=== PATIENT | female | born 1955 | race Caucasian/White ===

== ENCOUNTER 2018-03-07 11:39 | Outpatient (REF) | payer BC, SELFPAY ==
[2018-03-07 22:51] LABS: Cholesterol 117 mg/dL (50-200); HDL Cholesterol 59 mg/dL (40-60); LDL CHOLESTEROL 52 mg/dL (<100); Triglyceride 52 mg/dL (30-150)
== END 2018-03-07 11:59 ==
LOC: NCHCN 11:39
PROVIDERS: PCP Nurse Practitioner Family; Visit Provider Nurse Practitioner Family
DX: E78.5 Hyperlipidemia, unspecified (principal); I65.23 Occlusion and stenosis of bilateral carotid arteries
CPT/HCPCS: 80061; 83721

== ENCOUNTER 2018-05-30 12:49 | Outpatient (CLI) | payer BC, SELFPAY ==
--- NOTE | 2018-05-30 14:15 | W.PREOPHP ---
Documented by User: Teresa Kendell 06/01/18 08:17 Assessment and Plan (1) Traumatic arthritis of left knee: Current visit: Yes Status: Acute Plan: As per Dr. Coronel patient does not require bone length x-ray since total knee replacement is being done using OrthoAlign. Discussed surgery including surgical technique, pertinent anatomy, recovery process, benefits and risks including but not limited to risk of infection, blood clot, damage to soft tissue/nerve/blood vessels with patient in detail. Patient gave verbal understanding of risks and elects to proceed with scheduling surgery. Patient had opportunity to have questions answered to her satisfaction. Patient was provided booklet on guide to total knee replacements. Patient will contact office if issues arise, she will be scheduled for left total knee replacement with Dr. Coronel on June 05, 2018. Ms. Hanna is a 62-year-old female who presents to clinic for preoperative visit for scheduled left total knee replacement with Dr. Coronel on June 05, 2018. 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 Patient reports she did not lose consciousness but is unable to recall exactly how she suffered injury to her left leg. With help of her patient was able to escape from the bull, put weight on her left leg and walk into her house. She then presented for complaints of left knee pain several hours after injury. Once treated patient was diagnosed with left tibial plateau fracture which was treated with ORIF with lateral side plate. Following injury patient was diagnosed with posttraumatic arthritis of the left knee which has been managed by corticosteroid injections and Synvisc injections. Patient had originally been seen and treated at [facility] but sought care at [facility] orthopedics on 08/07/17. Following visit with orthopedic clinic patient returned to [facility] where she had left knee arthroscopy which diagnosed lateral meniscal tear and tricompartmental osteoarthritis. At time of left knee arthroscopy patient also had left proximal tibia hardware removal on 11/30/17. Patient was planning to have knee replacement done by [facility], however was unable to arrange to have knee replacement done within patient's desired timeframe. Describes continuing to have pain on the lateral aspect of her knee and occasionally the medial joint line. She reports that the knee feels weak and occasionally unstable especially walking on uneven ground and when going up stairs. Denies any actual giving out of the knee. She also reports feelings of fullness of the knee. She has noticed walking on uneven ground, going downstairs and skiing aggravates knee pain. Patient denies any swelling, numbness or tingling. Patient has tried corticosteroid and Synvisc injections which had previously provided relief. However, following the Synvisc and corticosteroid injection she received at [facility] orthopedic clinic on 03/23/18 she states she only had 48 hours of pain relief. Patient has continued to take Aleve as needed which provides pain relief. Patient has tried conservative therapies but continues to experience pain and elects to proceed with left total knee replacement. Pertinent Surgical Information Patient has history of elective RCA revascularization that required 2 cardiac stents placement approximately 3.5 years ago at [facility]. Patient reports prior to having cardiac stents placed she had exertional chest pain after completing farm and lawn activities for several months. However, following cardiac stent placement patient denies any episodes of chest pain. She does report weeklong occasion of feeling like she had an irregular heartbeat and palpitations in June 2017. She reports wearing a Holter monitor for 72 hours which did not show abnormal heart activity as per patient. EKG from 06/22/17 showed normal sinus rhythm with calculated rate of 69 bpm. Echocardiogram done by [facility] cardiology on 11/23/17 concluded normal left ventricular wall thickness, left ventricular ejection fraction is normal. Ejection fraction equals 65-70%. Left atrium is mildly dilated. There is mild aortic valve thickening. Denies past medical history of: Hypertension, stroke, asthma, COPD, sleep apnea, renal issues, liver issues, hepatitis, gastrointestinal issues, ulcers, bleeding disorders, seizures, migraines, anxiety, depression, diabetes, autoimmune disorders, thyroid issues Denies prior complications from surgery or anesthesia. Review of Systems Constitutional Denies fever(s), Denies frequent falls and Denies headache(s) Eyes Denies change in vision ENT Denies dental pain, Denies headache(s), Denies epistaxis, Denies nasal congestion, Denies nasal discharge and Denies sore throat Cardiovascular Denies chest pain, Denies chest pain at rest, Denies chest pain with activity, Denies rapid heart rate, Denies edema, Reports irregular heart rhythm (Reports experienced irregular heartbeat last year; denies any recent irregular heart rhythm after cardiac workup was completed), Reports palpitations (Reports experiecing palpitations when she had irregular heartbeat in June 2017; denies any recent episodes of palpitations since she had cardiac work-up), Denies dyspnea, Denies dyspnea on exertion, Denies orthopnea, Denies paroxysmal nocturnal dyspnea, Denies slow heart rate and Reports other (Reports history of innocent murmur) Respiratory Denies dyspnea, Denies dyspnea on exertion and Denies wheezing Gastrointestinal Denies abdominal pain, Denies melena, Denies hematochezia, Denies constipation, Denies diarrhea, Denies nausea and Denies vomiting Genitourinary Denies hematuria, Denies dysuria and Denies urinary urgency Musculoskeletal Reports as per HPI, Denies numbness and Denies tingling Neurologic Denies frequent falls, Denies headache(s), Denies numbness and Denies tingling Psychiatric Denies anxiety and Denies depression Endocrine Reports palpitations (Reports experiecing palpitations when she had irregular heartbeat in June 2017; denies any recent episodes of palpitations since she had cardiac work-up) Allergic/Immunologic Denies wheezing PFSH CAD (coronary artery disease) (Chronic) Innocent heart murmur (Acute) Hyperlipidemia (Chronic) Traumatic arthritis of left knee (Acute 08/07/17) Family History Mother Hypertension Father Hypertension Hyperlipidemia AAA (abdominal aortic aneurysm) Brother Kidney stones Status post placement of stent in right coronary artery (Acute) History of open reduction and internal fixation (ORIF) procedure (Acute) Status post abdominal hysterectomy (Acute) Status post hardware removal (Acute) History of open reduction and internal fixation (ORIF) procedure (Acute) Status post arthroscopy of left knee (Acute) Social History marital status: current occupational status: retired Smoking/Tobacco Use Status: Former Tobacco Use pack-years: 40 how long ago did patient quit smoking: quit 4 years ago when diagnosed with heart issues alcohol intake: current alcohol intake frequency: 0-2 drinks per day Alcohol type: wine substance use type: does not use Meds Home Medications Medication Instructions Recorded Confirmed Type aspirin 81 mg chewable tablet 81 mg PO DAILY 03/23/18 05/30/18 History atorvastatin 40 mg tablet 40 mg PO DAILY 03/23/18 05/30/18 History evolocumab 140 mg/mL subcutaneous 140 mg SC Q2W 03/23/18 05/30/18 History pen injector Allergies Allergy/AdvReac Type Severity Reaction Status Date / Time midazolam [From Versed] AdvReac Intermediate Uncontrollable Verified 05/31/18 16:22 crying Exam Const General: cooperative and no acute distress [facility] Head: normal to inspection, normocephalic and atraumatic Ears: external ears normal General nose exam: external nose normal and no nasal discharge Face and sinus: face symmetric Mouth: oral mucosae normal, lip normal, tongue normal and moist mucous membranes Teeth and gingiva: dentition normal Throat: posterior oropharynx normal Eyes General: appearance normal, both eyes and all related structures Pupils: PERRL EOM: EOM intact bilaterally Neck Neck: trachea midline Carotids: normal carotid upstroke Lymphatic: no lymphadenopathy noted Resp Effort & Inspection: normal respiratory effort and able to speak in complete sentences Auscultation: clear to auscultation bilaterally, no rales, no rhonchi and no wheezes Cardio Heart Sounds: S1 normal, S2 normal, no gallops, murmur and no rubs Pulses: radial pulses present bilaterally GI Palpation: soft, no hepatosplenomegaly and nontender Auscultation: normal bowel sounds Skin General skin exam: no rashes or lesions noted Extrem Other: Left knee examination: Skin is intact with well-healed scar noted consistent with surgical history. No signs of effusion are noted. Skin is without rashes, lesions, erythema or edema. Mild valgus deformity is noted on visual inspection. No tenderness palpation along joint line or patella. Active range of motion yields full extension and flexion of 120 degrees. Slight laxity is noted with stress to the knee but stable endpoints, increased laxity is noted with varus compared to valgus stress. Muscle strength was 5 out of 5 and elicited minor discomfort. Results Labs : 05/30/18 13:52 05/30/18 13:52
[2018-05-30 14:37] LABS: HCT 44.8 % (36.0-46.0); HGB 14.8 g/dL (12.0-15.5); Mean Corpuscular Hemoglobin 31.2 pg (27.0-33.0); Mean Corpuscular Volume 94.3 fL (80-95); Mean Platelet Volume 11.1 fL (8.0-11.0); Platelet Count 207 x1000/uL (130-400); RBC 4.75 m/cumm (4.00-5.20); RBC Distribution Width 12.9 % (11.7-14.6); White Blood Cell Count 7.03 k/cumm (4.4-10.8)
[2018-05-30 15:22] LABS: Anion Gap 9.5 mmol/L (3-11); BUN 11 mg/dL (7-18); CO2 30.5 mmol/L (21.0-32.0); CREATININE 0.82 mg/dL (0.55-1.02); Calcium 9.6 mg/dL (8.5-10.1); Chloride 103 mmol/L (98-107); Glucose 80 mg/dL (70-100); Potassium 4.1 mmol/L (3.5-5.1); Sodium 143 mmol/L (136-145)
--- NOTE | 2018-05-31 16:22 | HPE_ITS ---
Documented by User: Teresa Kendell 06/01/18 08:17 Assessment and Plan (1) Traumatic arthritis of left knee: Current visit: Yes Status: Acute Plan: As per Dr. Coronel patient does not require bone length x-ray since total knee replacement is being done using OrthoAlign. Discussed surgery including surgical technique, pertinent anatomy, recovery process, benefits and risks including but not limited to risk of infection, blood clot, damage to soft tissue/nerve/blood vessels with patient in detail. Patient gave verbal understanding of risks and elects to proceed with scheduling surgery. Patient had opportunity to have questions answered to her satisfaction. Patient was provided booklet on guide to total knee replacements. Patient will contact office if issues arise, she will be scheduled for left total knee replacement with Dr. Coronel on June 05, 2018. Ms. Hanna is a 62-year-old female who presents to clinic for preoperative visit for scheduled left total knee replacement with Dr. Coronel on June. 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 Patient reports she did not lose consciousness but is unable to recall exactly how she suffered injury to her left leg. With help of her patient was able to escape from the bull, put weight on her left leg and walk into her house. She then presented for complaints of left knee pain several hours after injury. Once treated patient was diagnosed with left tibial plateau fracture which was treated with ORIF with lateral side plate. Following injury patient was diagnosed with posttraumatic arthritis of the left knee which has been managed by corticosteroid injections and Synvisc injections. Patient had originally been seen and treated at [facility] but sought care at [facility] orthopedics on 08/07/17. Following visit with orthopedic clinic patient returned to [facility] where she had left knee arthroscopy which diagnosed lateral meniscal tear and tricompartmental osteoarthritis. At time of left knee arthroscopy patient also had left proximal tibia hardware removal on 11/30/17. Patient was planning to have knee replacement done by [facility], however was unable to arrange to have knee replacement done within patient's desired timeframe. Describes continuing to have pain on the lateral aspect of her knee and occasionally the medial joint line. She reports that the knee feels weak and occasionally unstable especially walking on uneven ground and when going up stairs. Denies any actual giving out of the knee. She also reports feelings of fullness of the knee. She has noticed walking on uneven ground, going downstairs and skiing aggravates knee pain. Patient denies any swelling, numbness or tingling. Patient has tried corticosteroid and Synvisc injections which had previously provided relief. However, following the Synvisc and corticosteroid injection she received at [facility] orthopedic clinic on 03/23 she states she only had 48 hours of pain relief. Patient has continued to take Aleve as needed which provides pain relief. Patient has tried conservative therapies but continues to experience pain and elects to proceed with left total knee replacement. Pertinent Surgical Information Patient has history of elective RCA revascularization that required 2 cardiac stents placement approximately 3.5 years ago at [facility]. Patient reports prior to having cardiac stents placed she had exertional chest pain after completing farm and lawn activities for several months. However, following cardiac stent placement patient denies any episodes of chest pain. She does report weeklong occasion of feeling like she had an irregular heartbeat and palpitations in June 2017. She reports wearing a Holter monitor for 72 hours which did not show abnormal heart activity as per patient. EKG from 06/22/17 showed normal sinus rhythm with calculated rate of 69 bpm. Echocardiogram done by [facility] cardiology on 11/23/17 concluded normal left ventricular wall thickness, left ventricular ejection fraction is normal. Ejection fraction equals 65-70%. Left atrium is mildly dilated. There is mild aortic valve thickening. Denies past medical history of: Hypertension, stroke, asthma, COPD, sleep apnea , renal issues, liver issues, hepatitis, gastrointestinal issues, ulcers, bleeding disorders, seizures, migraines, anxiety, depression, diabetes, autoimmune disorders, thyroid issues Denies prior complications from surgery or anesthesia. Review of Systems Constitutional Denies fever(s), Denies frequent falls and Denies headache(s) Eyes Denies change in vision ENT Denies dental pain, Denies headache(s), Denies epistaxis, Denies nasal congestion, Denies nasal discharge and Denies sore throat Cardiovascular Denies chest pain, Denies chest pain at rest, Denies chest pain with activity, Denies rapid heart rate, Denies edema, Reports irregular heart rhythm (Reports experienced irregular heartbeat last year; denies any recent irregular heart rhythm after cardiac workup was completed), Reports palpitations (Reports experiecing palpitations when she had irregular heartbeat in June 2017; denies any recent episodes of palpitations since she had cardiac work-up), Denies dyspnea, Denies dyspnea on exertion, Denies orthopnea, Denies paroxysmal nocturnal dyspnea, Denies slow heart rate and Reports other (Reports history of innocent murmur) Respiratory Denies dyspnea, Denies dyspnea on exertion and Denies wheezing Gastrointestinal Denies abdominal pain, Denies melena, Denies hematochezia, Denies constipation, Denies diarrhea, Denies nausea and Denies vomiting Genitourinary Denies hematuria, Denies dysuria and Denies urinary urgency Musculoskeletal Reports as per HPI, Denies numbness and Denies tingling Neurologic Denies frequent falls, Denies headache(s), Denies numbness and Denies tingling Psychiatric Denies anxiety and Denies depression Endocrine Reports palpitations (Reports experiecing palpitations when she had irregular heartbeat in June 2017; denies any recent episodes of palpitations since she had cardiac work-up) Allergic/Immunologic Denies wheezing PFSH CAD (coronary artery disease) (Chronic) Innocent heart murmur (Acute) Hyperlipidemia (Chronic) Traumatic arthritis of left knee (Acute 08/07/17) Family History Mother Hypertension Father Hypertension Hyperlipidemia AAA (abdominal aortic aneurysm) Brother Kidney stones Status post placement of stent in right coronary artery (Acute) History of open reduction and internal fixation (ORIF) procedure (Acute) Status post abdominal hysterectomy (Acute) Status post hardware removal (Acute) History of open reduction and internal fixation (ORIF) procedure (Acute) Status post arthroscopy of left knee (Acute) Social History marital status: current occupational status: retired Smoking/Tobacco Use Status: Former Tobacco Use pack-years: 40 how long ago did patient quit smoking: quit 4 years ago when diagnosed with heart issues alcohol intake: current alcohol intake frequency: 0-2 drinks per day Alcohol type: wine substance use type: does not use Meds Home Medications Medication Instructions Recorded Confirmed Type aspirin 81 mg chewable tablet 81 mg PO DAILY 03/23/18 05/30/18 History atorvastatin 40 mg tablet 40 mg PO DAILY 03/23/18 05/30/18 History evolocumab 140 mg/mL subcutaneous 140 mg SC Q2W 03/23/18 05/30/18 History pen injector Allergies Allergy/AdvReac Type Severity Reaction Status Date / Time midazolam [From Versed] AdvReac Intermediate Uncontrollable Verified 05/31/18 16 :22 crying Exam Const General: cooperative and no acute distress [facility] Head: normal to inspection, normocephalic and atraumatic Ears: external ears normal General nose exam: external nose normal and no nasal discharge Face and sinus: face symmetric Mouth: oral mucosae normal, lip normal, tongue normal and moist mucous membranes Teeth and gingiva: dentition normal Throat: posterior oropharynx normal Eyes General: appearance normal, both eyes and all related structures Pupils: PERRL EOM: EOM intact bilaterally Neck Neck: trachea midline Carotids: normal carotid upstroke Lymphatic: no lymphadenopathy noted Resp Effort & Inspection: normal respiratory effort and able to speak in complete sentences Auscultation: clear to auscultation bilaterally, no rales, no rhonchi and no wheezes Cardio Heart Sounds: S1 normal, S2 normal, no gallops, murmur and no rubs Pulses: radial pulses present bilaterally GI Palpation: soft, no hepatosplenomegaly and nontender Auscultation: normal bowel sounds Skin General skin exam: no rashes or lesions noted Extrem Other: Left knee examination: Skin is intact with well-healed scar noted consistent with surgical history. No signs of effusion are noted. Skin is without rashes, lesions, erythema or edema. Mild valgus deformity is noted on visual inspection. No tenderness palpation along joint line or patella. Active range of motion yields full extension and flexion of 120 degrees. Slight laxity is noted with stress to the knee but stable endpoints, increased laxity is noted with varus compared to valgus stress. Muscle strength was 5 out of 5 and elicited minor discomfort. Results Labs : 05/30/18 13:52 05/30/18 13:52
== END 2018-05-30 13:09 ==
PROVIDERS: PCP Nurse Practitioner Family; Visit Provider Student in an Organized Health Care Education/Training Program
DX: M25.562 Pain in left knee (principal); M17.12 Unilateral primary osteoarthritis, left knee; Z01.818 Encounter for other preprocedural examination
CPT/HCPCS: 36415; 80048; 85027; NC

== ENCOUNTER 2018-06-05 05:58 | Inpatient (IN) | payer BC, SELFPAY ==
[2018-05-30 13:08] VITALS: BP 154/90; PULSE 63; RESP 17; TEMP 36.7; O2SAT 97
[2018-06-05] VITALS (8 sets, daily range): BP systolic 131–174; BP diastolic 76–91; PULSE 62–766; RESP 11–18; TEMP 36–36.5; O2SAT 94–99
[2018-06-05] MEDS: Celecoxib 200 MG CAP 400 MG PO (06:27)
[2018-06-05] MEDS: Gabapentin 300 MG CAP PO (06:28)
[2018-06-05] MEDS: Acetaminophen 500 MG TAB 1000 MG PO ×2 (06:28→12:08)
[2018-06-05] MEDS: oxyCODONE-CR 10 MG TABCR PO (06:29)
[2018-06-05] MEDS: Lactated Ringers 1,000 ML 80 ML IV ×2 (06:31→09:47)
[2018-06-05] MEDS: Bupivacaine 0.25% Pres-Free 30 ML VIAL (08:55)
[2018-06-05] MEDS: Normal Saline 50 ML (08:55)
[2018-06-05] MEDS: Ketorolac 30 MG/ML VIAL (08:55)
[2018-06-05] MEDS: Bupivacaine LIPOSOME/PF 133 MG/10 ML VIAL IJ (08:55)
--- NOTE | 2018-06-05 11:27 | NUR.NOTE ---
Nursing Note: Pt arrived on floor at 1057 from PACU, vitals stable, LR running. Propofol left in pigtail, pigtail on IV to be changed. Pt has cryo cuff and KEHINDE on left leg.
--- NOTE | 2018-06-05 13:45 | PT.INIE ---
Date of service: 06/05/18 Time of Service: 13:45 PT Notes Inpatient Physical Therapy Evaluation Date: 06/05/2018 Referring Doctor: Nasim Coronel PT Orders: PT CONSULT: S/P L TKA Precautions: WBAT LLE Patient Profile/Admitting Diagnosis: Patient is a 62-year-old female as/P left total knee arthroplasty by Dr. Coronel 06/05/2018 PMHX: Coronary artery disease status post stent placement, heart murmur, traumatic arthritis left knee, left tibial plateau fracture with hardware removal, hyperlipidemia, abdominal hysterectomy Social History/Home Situation: Lives with and her house 3 steps with single railing to enter, baseline mobility independent gait without assistive device and independent with ADLs. Patient is a retired nurse. Equipment Owned/DME: [employer] Subjective: Patient lying in bed alert and agreeable to PT consult, states she is eager to go home this afternoon. Objective: General Observation: IV left upper extremity, Zarate catheter, Jose A wrap left lower extremity, CryoCuff left knee Mental Status: A and O x3 Pain: No complaints of pain Bed Mobility/Transfers: Supine to sit: Independent Sit to stand: Independent Stand to sit: Independent Sit to supine: Independent Gait: Supervision gait with FWW is 250 feet, WBAT LLE, step through gait pattern with instruction for sequencing Stairs: Instructed in up and down 5 steps with single railing step to step sequence, WBAT LLE, patient independent with stair training. Therex: Patient has issued pre-op TKA packet with home exercise program Balance: Static Sitting: Normal Dynamic Sitting: Normal Static Standing: Good Dynamic Standing: Fair Special Tests: Mobility Limitations Standardized Measure [facility] AM-PAC 6 clicks Basic Mobility Inpatient Short Form: Raw Score: 21 standardized Score 50.25 CMS Score: 28.97% [facility] Modifier: CJ Informed Consent/Education: Patient instructed in purpose of PT consult and plan of care. Assessment: Patient is a 62 year old female referred to physical therapy services with the diagnosis of S/P left total knee arthroplasty by Dr. Coronel 06/05/2018. Patient presents with the following impairment level findings: Weakness left quadricep, decreased static and dynamic standing balance requiring FWW for postop mobility to prevent falls. Patient was able to perform independent transfers, independent stair training with use of railing and supervision gait with FWW without assistance. Patient is at functional level to return to home setting when medically cleared MD aware. Impairments are contributing to the following functional limitations: AMPAC score CMS Score: 28.97% Patient is assessed as a Low 37115 complexity based on the following: History: See above Examination: See above Presentation: Stable Decision Making:AMPAC score CMS Score: 28.97% Goals: Not applicable Plan of Care/Treatment Plan: PT eval only DISCHARGE RECOMMENDATIONS: Home with , has FWW TREATMENT CODE/TIME: 30 minutes IE 1 1340 G Codes in the area mobility of walking and moving around: current status [id number] CK; projected status GP [id number]. Discharge status (if discharging) GP [id number] CK based on AMPAC scores. Sheela Bee PT Disclaimer: This note was created using jslyhl voice recognition software. It was reviewed for major content. However, there may be multiple small discrepancies and errors due to the voice recognition aspects of the software.
--- NOTE | 2018-06-05 13:55 | IN_ITS ---
Date of service: 06/05/18 Time of Service: 13:45 PT Notes Inpatient Physical Therapy Evaluation Date: 06/05/2018 Referring Doctor: Nasim Coronel PT Orders: PT CONSULT: S/P L TKA Precautions: WBAT LLE Patient Profile/Admitting Diagnosis: Patient is a 62-year-old female as/P left total knee arthroplasty by Dr. Coronel 06/05/2018 PMHX: Coronary artery disease status post stent placement, heart murmur, traumatic arthritis left knee, left tibial plateau fracture with hardware removal, hyperlipidemia, abdominal hysterectomy Social History/Home Situation: Lives with and her house 3 steps with single railing to enter, baseline mobility independent gait without assistive device and independent with ADLs. Patient is a retired nurse. Equipment Owned/DME: FWW Subjective: Patient lying in bed alert and agreeable to PT consult, states she is eager to go home this afternoon. Objective: General Observation: IV left upper extremity, Zarate catheter, Jose A wrap left lower extremity, CryoCuff left knee Mental Status: A and O x3 Pain: No complaints of pain Bed Mobility/Transfers: Supine to sit: Independent Sit to stand: Independent Stand to sit: Independent Sit to supine: Independent Gait: Supervision gait with FWW is 250 feet, WBAT LLE, step through gait pattern with instruction for sequencing Stairs: Instructed in up and down 5 steps with single railing step to step sequence, WBAT LLE, patient independent with stair training. Therex: Patient has issued pre-op TKA packet with home exercise program Balance: Static Sitting: Normal Dynamic Sitting: Normal Static Standing: Good Dynamic Standing: Fair Special Tests: Mobility Limitations Standardized Measure [facility] AM-PAC 6 clicks Basic Mobility Inpatient Short Form: Raw Score: 21 standardized Score 50.25 CMS Score: 28.97% [facility] Modifier: CJ Informed Consent/Education: Patient instructed in purpose of PT consult and plan of care. Assessment: Patient is a 62 year old female referred to physical therapy services with the diagnosis of S/P left total knee arthroplasty by Dr. Coronel 06/05/2018. Patient presents with the following impairment level findings: Weakness left quadricep, decreased static and dynamic standing balance requiring FWW for postop mobility to prevent falls. Patient was able to perform independent transfers, independent stair training with use of railing and supervision gait with FWW without assistance. Patient is at functional level to return to home setting when medically cleared MD aware. Impairments are contributing to the following functional limitations: AMPAC score CMS Score: 28.97% Patient is assessed as a Low 90694 complexity based on the following: History: See above Examination: See above Presentation: Stable Decision Making:AMPAC score CMS Score: 28.97% Goals: Not applicable Plan of Care/Treatment Plan: PT eval only DISCHARGE RECOMMENDATIONS: Home with , has FWW TREATMENT CODE/TIME: 30 minutes IE 1 1340 G Codes in the area mobility of walking and moving around: current status [id number] CK; projected status GP [id number]. Discharge status (if discharging) GP [id number] CK based on AMPAC scores. Sheela Bee PT Disclaimer: This note was created using [employer] voice recognition software. It was reviewed for major content. However, there may be multiple small discrepancies and errors due to the voice recognition aspects of the software.
--- NOTE | 2018-06-05 14:07 | PDOC.CMPRO ---
- If Service Date Differs Date of service: 06/05/18 Time of Service: 14:07 Care Management Progress Note CM met with Amna at the bedside she had a total left knee done today. She will be discharged home today with no services. She has her own FWW here with her she will transport home with her spouse via private car. She has a plan to manage pain CM reviewed follow up plan. Amna denies any additional needs at this time.
--- NOTE | 2018-06-05 14:36 | W.PM.DS.N ---
Date of service: 06/05/18 Time of Service: 14:37 DS: Diagnosis Discharge Diagnosis (1) Traumatic arthritis of left knee: Status: Acute Asessment and Plan: s/p Left TKA 06/05/18 Discharge Plan Disposition Patient Disposition: HOME Condition: Improving Discharge Details Reason For Visit: (L) KNEE DJD Admit Date/Time: 06/05/18 05:58 Admit Provider: Nasim Coronel Attending Provider: Nasim Coronel Primary Care Provider: RASHIDA ALEMAN Hospital Course Hospital Course: Patient was admitted to the medical/surgical floor following the procedure. It was tolerated well without any notable medical, surgical, or anesthetic complications. Mobilization began postoperatively. The barahona catheter was removed and voiding spontaneously. Vitals were stable. Physical therapy worked with the patient and was cleared for discharge home. No acute medical issues. Home Meds and New Rx's Prescriptions: New celecoxib 200 mg capsule 200 mg PO BID PRN (Reason: pain) Qty: 60 RF: 1 hydrocodone-acetaminophen 5-325 mg tablet 1 tab PO Q4H PRN (Reason: pain) Qty: 6 RF: 0 pantoprazole 40 mg tablet,delayed release (DR/EC) 40 mg PO DAILY Qty: 30 RF: 0 acetaminophen 500 mg capsule 1,000 mg PO Q8H PRN (Reason: pain) Qty: 90 RF: 0 Continue atorvastatin 40 mg tablet 40 mg PO DAILY RF: 0 evolocumab [Repatha SureClick] 140 mg/mL pen injector 140 mg SC Q2W RF: 0 Changed aspirin 81 mg tablet,chewable 81 mg PO BID Qty: 0 RF: 0 Discharge Instructions Activity:: Activity as Tolerated Equipment/Supplies:: Walker Diet:: As Tolerated Discharge Orders Discharge Orders: Discharge Order (Routine); Ordered 06/05/18 Ordered By: Nasim Coronel DS: Data Vitals/I&O Vitals and I&O: Vital Signs Temperature 36.4 C L 06/05/18 11:10 Temperature Source Tympanic 06/05/18 11:10 Pulse 65 06/05/18 11:10 Pulse Rhythm Regular 06/05/18 11:00 Respiratory Rate 18 06/05/18 11:10 Respiratory Effort Non-Labored 06/05/18 11:00 Respiratory Depth Normal 06/05/18 11:00 Respiratory Pattern Normal 06/05/18 11:00 Blood Pressure 174/83 H 06/05/18 11:10 Pulse Oximetry 97 06/05/18 11:10 Respiratory End-tidal CO2 36 06/05/18 10:45 Oxygen Delivery Method Room Air 06/05/18 11:10 Oxygen Flow Rate 0 06/05/18 11:10 Pain Level 0 06/05/18 12:08 Comment 06/05/18 11:10 Intake & Output 06/04/18 06/05/18 06/05/18 23:59 11:59 23:59 Intake Total 1375 / 1375 480 / 480 Output Total 400 / 400 1200 / 1200 Balance 975 / 975 -720 / -720 Weight 76.8 kg Intake: IV 1270 / 1270 Oral 105 / 105 480 / 480 Output: Urine 250 / 250 1200 / 1200 Estimated Blood Loss 150 / 150 Other: Urine Color Yellow Pale Yellow Urine Appearance Clear Clear Emesis Description None PFSH CAD (coronary artery disease) (Chronic) Innocent heart murmur (Acute) Hyperlipidemia (Chronic) Family History Mother Hypertension Father Hypertension Hyperlipidemia AAA (abdominal aortic aneurysm) Brother Kidney stones Status post placement of stent in right coronary artery (Acute) History of open reduction and internal fixation (ORIF) procedure (Acute) Status post abdominal hysterectomy (Acute) Status post hardware removal (Acute) History of open reduction and internal fixation (ORIF) procedure (Acute) Status post arthroscopy of left knee (Acute) Family History Mother Hypertension Father Hypertension Hyperlipidemia AAA (abdominal aortic aneurysm) Brother Kidney stones Medical History CAD (coronary artery disease) (Chronic) Innocent heart murmur (Acute) Hyperlipidemia (Chronic) Social History current occupational status: retired Smoking/Tobacco Use Status: Former Tobacco Use pack-years: 40 how long ago did patient quit smoking: quit 4 years ago when diagnosed with heart issues alcohol intake: current alcohol intake frequency: 0-2 drinks per day Alcohol type: wine substance use type: does not use Surgical History Status post placement of stent in right coronary artery (Acute) History of open reduction and internal fixation (ORIF) procedure (Acute) Status post abdominal hysterectomy (Acute) Status post hardware removal (Acute) History of open reduction and internal fixation (ORIF) procedure (Acute) Status post arthroscopy of left knee (Acute) Social History current occupational status: retired Smoking/Tobacco Use Status: Former Tobacco Use pack-years: 40 how long ago did patient quit smoking: quit 4 years ago when diagnosed with heart issues alcohol intake: current alcohol intake frequency: 0-2 drinks per day Alcohol type: wine substance use type: does not use
--- NOTE | 2018-06-05 17:03 | ROE_ITS ---
Date of service: 06/05/18 Time of Service: 10:54 Operative Note DATE OF PROCEDURE: 06/05/18 PRE-OP DIAGNOSIS: Left Posttraumatic Knee Arthritis POST-OP DIAGNOSIS: same PROCEDURE: Left Total Knee Arthroplasty with Intraoperative Navigation SURGEON: Nasim Coronel SOFTWARE SECURITY CONSULTANT: Teresa Rdz ANESTHESIA: regional and spinal ESTIMATED BLOOD LOSS: 150 PATHOLOGY: none sent TOURNIQUET TIME: 37 COMPLICATIONS: None Patient was transported to: PACU Patient's condition: stable Implants: 1. Depuy Attune Posterior Stabilized Femoral Component, Size 6 narrow 2. Depuy Attune Fixed Platform Tibial Component, Size 4 3. Depuy Attune 6 x 8 mm fixed, Stabilized Poly 4. Depuy Attune Patellar Component, Size 35 mm Indications: I have seen Amna in clinic for symptoms of posttraumatic knee arthritis, confirmed with radiographic findings and previous arthroscopic findings. She has exhausted nonoperative methods and was having significant limitations in daily function and desired better function and less pain. I discussed the technical details of a knee replacement. I explained the risks of the procedure to include, but not limited to, bleeding, infection, pain, stiffness, fracture, damage to nerves and vessels, damage to muscles and tendons , loosening, need for repeat procedure, blood clot and cardiopulmonary demise. Despite these risks, Amna elected to proceed. Findings: There was significant signs of arthritis throughout the knee, primarily of the lateral tibial plateau with complete loss of cartilage. There is also some wear, centrally, over the medial compartment. Procedure Description: Amna was greeted in the preoperative holding area where the correct side was identified and marked. The consent was reviewed with the patient and signed. The history and physical was updated. All questions were answered. Preoperative mediacations were administered: Acetaminophen 1000mg, Celebrex 400mg, Gabapentin 300mg, and Oxycontin 10mg. An adductor canal block was then administered by the anesthesia team in the PACU. Amna was taken back to the operating room. A spinal anesthestic was then administered. The patient was placed into the supine position on the operating room table. A nonsterile tourniquet was placed high onto the leg but only used for cementing. Posts were placed for positioning during the procedure. All bony prominences were well padded. Prophylactic antibiotics in the form of cefazolin were administered. 1g of Tranxemic Acid was given intravenously within 30 minutes of incision. The left leg was then prepped with Chloraprep and draped in a standard fashion with impervious stockinette and extremity drape with Iodine impregnated skin protection. A timeout to confirm correct identity, side and site, procedure, allergies, anesthesia, and medical concerns was performed. Due to the previous surgery for her lateral tibial plateau, I did use the previous lateral incision. I incorporated the old lateral incision into a sweeping lateral curvilinear incision ending over the anterior femur. I made sure to go all the way down to the IT band, vastus lateralis, and patellar tendon raising full-thickness skin flaps incorporating all of the subtendinous fat subtenons tissue and the deep fascia. I did not encounter any perforators hopefully protecting the skin flaps integrity. Once the extensor mechanism was fully exposed, a medial parapatellar arthrotomy was performed in a flexed position. All bleeding from the arthrotomy and the geniculate arteries was coagulated. A medial subperiosteal peel was performed with electrocautery to the midcoronal plane. The fat pad was removed while keeping the patellar tendon protected. The anterior distal femur synovium was removed for later visualization. The ACL and PCL were resected and the anterior horn of the lateral meniscus was transected. The knee was then flexed with the patella everted. There was some hypoplasia of the lateral femoral condyle and any remnant cartilage of the medial femoral condyle was removed for appropriate thickness. A single starting pin was then placed 1cm anterior to the PCL insertion and the notch in the direction of the femoral head. The OrthoAlign device was applied over the pin. It was oriented to be in line with the epicondylar axis and the trochlear groove. It was then pinned into place. The navigation computer was then turned on and calibrated. The distal femur cut was set at 0 degrees varus/ valgus and 2.5 degrees flexion. The distal femur cutting guide then was positioned for a 9mm cut. The distal femur was cut with an oscillating saw while protecting the soft tissues. The tibia was then addressed. The OrthoAlign device was placed over the tibial tubercle and medial tibia and secured into position. Once again, OrthoAlign was calibrated and then set for a 0 degree varus/valgus cut and 3 degrees of posterior slope. With this locked into position, the cut thickness stylus was used to assess cut thickness. The cut was quite even given her lateral wear. I set it for 6 mm off both medial and lateral side. This was then held in position and pinned into place with 2 additional pins and a cross pin for stability. The medial and lateral collateral ligaments were protected and the cut was performed. With this completed, it was assessed and noted to be of appropriate dimensions. The guide and OrthoAlign was removed. A spacer block was inserted and the knee was brought into extension. The 8 mm spacer block provided full extension, without hyperextension and with stability of both the medial and lateral collateral ligaments was assessed. The pins from the femur and the tibia were then removed. The distal femur was then sized. The anterior stylus was placed onto the lateral ridge of the anterior femur. This indicated a size 6 femur. The external rotation of the guide was adjusted to 5 degrees to match the epicondylar axis, perpendicular to Tiffanie?s line. The 4-in-1 cutting guide was the placed. The posterior medial femur cut was evaluated and appeared of good thickness. The spacer block was inserted underneath the cutting guide and stability was confirmed in 90 degrees of flexion. An perla wing was used to confirm appropriate position of the anterior cut to avoid notching. This cutting guide was ensured to be flush on the cut surface and then pinned into place with headed pins. While protecting the soft tissues, quad tendon, and collateral ligaments, the anterior and posterior cuts were performed with a saw. The central two pins were removed and the posterior and anterior chamfers were cut next. The notch-cutting guide was placed. This was pinned to lateralize the femoral component as much as possible while keeping it flush on the cut surface. This was then pinned into position. A reciprocating saw was used to make the notch cut. A rasp smoothed the cut surfaces. A trial posterior stabilized femoral component was then inserted, impacted down to the cut surfaces, and the lug holes were drilled. A provisional trial tibial component was placed and the knee was brought through range of motion. There was noted to be excellent extension and flexion. There was no significant instability. The patella was tracking without thumbs. The tibial cut surface was fully exposed. The medial and lateral menisci were removed. The tibia was then sized as a 4. The tibia had been previously marked during trialing to correspond to the center of the tibial component to help with rotation. The trial was aligned to this antoni, approximately rotated to the medial 1/3rd of the tibial tubercle. The trial was pinned into place. The tibia was prepared with a reamer and a keel punch. The knee was then brought into extension and the patella was measured as 25 mm. Using the patellar clamp and cut guide, this was resected to a flat surface with at least 13mm of thickness remaining. The size 35 mm patella fit the best. This was oriented and then clamped into position. The lugs were drilled. The trial components were removed. The final components, except for the polyethylene were opened on the back table. The periosteal and capsular tissues around the knee were then systematically injected with a periarticular cocktail consisting of 50cc 0.25% Marcaine, 30mg Ketorolac, 20cc of Exparal and 50cc of injectable saline. The tourniquet was then inflated to 275mmHg. The knee was thoroughly irrigated with a pulse lavage and dried. On the back table, with the implants opened, the cement was mixed. 2 batches of antibiotic laden cement were prepared with vacuum assistance. After the cement was ready a small amount was placed on to the back side of the tibial component at the keel. A small amount was placed onto the posterior flange of the femur. Cement was manual pressurized and impregnated into the cut surface of the tibia. The tibial component was then inserted into the cut surface and impacted into position. Excess cement was removed and the component was reimpacted. Again, excess cement was removed and our attention was then turned to the femur. The femoral cut surface was once again dried and cement was manually impacted into the cut surface. The femoral component was lined with the lug holes and impacted. Excess cement was removed. It was ensured to be down against the cut surface. The trial polyethylene was then inserted and the leg was brought out into full extension for the duration of the cement curing process, approximately 15min. Cement was lastly manually impacted into the cut surface of the patella and the patellar button was clamped into position and held. During this process attention was turned to the gutters of the knee and for all interfaces for any excess cement. After the cement had finally cured, approximately 15min, the clamp was removed from the patella and the knee was taken through range of motion. A size 8 mm polyethylene component provided the best range of motion and stability with less than 2mm gapping with medial and lateral stress and full extension without significant hyperextension. The patella was tracking with a no-thumbs technique. The trial poly was removed and once again the knee was checked for any loose, excess, or errant cement. The poly component was then inserted and impacted into position after cleaning and drying the tibial tray. The capsule was then reapproximated with a No. 1 Vicryl at multiple locations. The capsule was finally closed with a No. 2 Stratafix, barbed suture. The tourniquet was then released and the arthrotomy appeared watertight. The second dosing of 1g TXA was started. Deep tissues were then reapproximated with 0 Vicryl and 2-0 Vicryl. The skin was closed with a running 3-0 Monocryl in a subcuticular fashion. This was reinforced with skin glue. A Mepilex silver dressing was applied along with a [id number] KEHINDE wrap. A CryoCuff was applied. Amna was transferred to the hospital bed without difficulty an suffering no apparent complication. Amna has a good prognosis. Physical therapy will start today and without restrictions, weight-bearing as tolerated. Aspirin 81mg BID will be used for DVT prophylaxis.
== END 2018-06-05 15:30 | disposition home or self-care (01) | DRG 470 ==
LOC: PDS 09:51 → MS 10:11
PROVIDERS: Admitting Provider Student in an Organized Health Care Education/Training Program; PCP Nurse Practitioner Family; Visit Provider Student in an Organized Health Care Education/Training Program
PROC: 0SRD0J9 Replacement of Left Knee Joint with Synthetic Substitute, Cemented, Open Approach (ICD-10-PCS; CPT 27447; principal; 2018-06-05 07:30)
DX: M17.32 Unilateral post-traumatic osteoarthritis, left knee (principal); T14.90XS Injury, unspecified, sequela; X58.XXXS Exposure to other specified factors, sequela
CPT/HCPCS: 27447; 20985; 76942; 97161; NC; J0690; J1100; J1885; J2405

== ENCOUNTER 2018-06-20 13:56 | Outpatient (CLI) | payer BC, SELFPAY ==
--- NOTE | 2018-06-20 13:46 | DI.RAD_ITS ---
SYMPTOMS/DIAGNOSIS: F/U LEFT TKA LEFT KNEE: There is considerable soft tissue swelling over the anterior portion of the knee. The patient is status post TKR, the prosthesis in excellent position, surrounding bone intact. LEG LENGTH STUDY: For the left leg, a length measurement of 89 cm is obtained. For the right leg, there is also recorded a measurement of 89 cm in length. The left knee prosthesis appears to be in good position. There are perhaps mild degenerative changes involving the right knee.
== END 2018-06-20 14:16 ==
PROVIDERS: PCP Nurse Practitioner Family; Visit Provider Student in an Organized Health Care Education/Training Program
DX: Z96.652 Presence of left artificial knee joint (principal); Z47.1 Aftercare following joint replacement surgery; M17.11 Unilateral primary osteoarthritis, right knee
CPT/HCPCS: 73560; 77073

== ENCOUNTER → 2018-07-18 13:24 | Outpatient (BNVA) | payer OTHER, SELFPAY | PROVIDERS: PCP Nurse Practitioner Family; Referring Provider Nurse Practitioner Family; Visit Provider Student in an Organized Health Care Education/Training Program | DX: Z47.1 Aftercare following joint replacement surgery (principal); Z96.652 Presence of left artificial knee joint ==

== ENCOUNTER 2019-01-15 12:14 | Outpatient (REF) | payer OTHER, SELFPAY ==
[2019-01-15 20:55] LABS: ALT 34 U/L (12-78); AST 20 U/L (15-37); Albumin 4.2 g/dL (3.4-5.0); Alkaline Phosphatase 113 U/L (46-116); Anion Gap 10.5 mmol/L (3-11); BUN 15 mg/dL (7-18); Bilirubin, Total 0.3 mg/dL (0.2-1.0); CO2 26.5 mmol/L (21.0-32.0); CREATININE 0.72 mg/dL (0.55-1.02); Calcium 9.2 mg/dL (8.5-10.1); Calculated LDL 66 mg/dL; Chloride 104 mmol/L (98-107); Cholesterol 130 mg/dL (50-200); Glucose 90 mg/dL (70-100); HDL Cholesterol 55 mg/dL (40-60); Potassium 4.3 mmol/L (3.5-5.1); Sodium 141 mmol/L (136-145); Total Protein 7.2 g/dL (6.4-8.2); Triglyceride 48 mg/dL (30-150)
== END 2019-01-15 12:34 ==
LOC: NCHCN 12:14
PROVIDERS: PCP Nurse Practitioner Family; Visit Provider Nurse Practitioner Family
DX: E78.5 Hyperlipidemia, unspecified (principal); I25.10 Atherosclerotic heart disease of native coronary artery without angina pectoris; I65.23 Occlusion and stenosis of bilateral carotid arteries
CPT/HCPCS: 80053; 80061; 83721

== ENCOUNTER 2019-07-22 14:32 | Outpatient (CLI) | payer OTHER, SELFPAY ==
--- NOTE | 2019-07-22 14:34 | DI.RAD_ITS ---
EXAM: XR KNEE LT 2V AP,LAT CLINICAL HISTORY: ANNUAL F/U TECHNIQUE: COMPARISON: XR knee LT 1V from 06/20/2018 FINDINGS: Two views were obtained. There is a total knee joint replacement in position. Components appear wel l seated. No other significant bony abnormality seen. IMPRESSION:
== END 2019-07-22 14:52 ==
PROVIDERS: PCP Nurse Practitioner Family; Referring Provider Nurse Practitioner Family; Visit Provider Student in an Organized Health Care Education/Training Program
DX: Z96.652 Presence of left artificial knee joint (principal); Z47.1 Aftercare following joint replacement surgery
CPT/HCPCS: 99213; 73560

== ENCOUNTER 2020-12-10 09:50 | Outpatient (REF) | payer OTHER, SELFPAY ==
[2020-12-10 13:32] LABS: ALT 33 U/L (14-59); AST 18 U/L (15-37); Alkaline Phosphatase 107 U/L (46-116); Anion Gap 6.1 mmol/L (3-11); BUN 20 mg/dL (7-18); Bilirubin, Total 0.4 mg/dL (0.2-1.0); CO2 30.9 mmol/L (21.0-32.0); CREATININE 0.8 mg/dL (0.55-1.02); Calcium 8.9 mg/dL (8.5-10.1); Calculated LDL 69 mg/dL (<100); Chloride 107 mmol/L (98-107); Cholesterol 133 mg/dL (<200); Glucose 92 mg/dL (74-106); HDL Cholesterol 56 mg/dL (40-60); Potassium 4.3 mmol/L (3.5-5.1); Sodium 144 mmol/L (136-145); Triglyceride 43 mg/dL (<150)
== END 2020-12-10 09:51 | disposition home or self-care (01) ==
LOC: NCHCN 09:50
PROVIDERS: PCP Nurse Practitioner Family; Visit Provider Nurse Practitioner Family
DX: I65.23 Occlusion and stenosis of bilateral carotid arteries (principal)
CPT/HCPCS: 80053; 80061

== ENCOUNTER 2023-03-02 13:17 | Outpatient (CLI) | payer MEDICARE, SELFPAY ==
--- NOTE | 2023-03-02 09:00 | DI.RAD_ITS ---
Exam(s) XR HAND RT COMPLETE EXAM: XR HAND RT COMPLETE CLINICAL HISTORY: right index finger pain. TECHNIQUE: 2D digital imaging was performed of the right hand. Three images were obtained. AP, late ral and oblique views were obtained. COMPARISON: No exams were available for comparison FINDINGS: BONES: No acute fracture is present. No bony destructive lesion is seen. There is a chronic deformity of the distal radius. JOINTS: No dislocation present. There are degenerative changes seen in the hand and fingers character ized by joint space narrowing and osteophytes. The findings are most marked in the interphalangeal j oints of the fingers, particularly the 2nd, 3rd and 4th fingers. There is a small erosion at the rad ial aspect of the base of the proximal phalanx of the 5th finger. Postsurgical changes seen at the 1 st metacarpophalangeal joint. SOFT TISSUE: There is a nonspecific soft tissue calcification posterior to the head of the proximal p halanx of the 3rd finger. IMPRESSION: Moderate degenerative changes of the hand. DATA REPOSITORY: RADIATION DOSE DELIVERED:
== END 2023-03-02 13:18 | disposition home or self-care (01) ==
LOC: DIORS 13:18
PROVIDERS: PCP Nurse Practitioner Family; Referring Provider Nurse Practitioner Family
DX: M79.644 Pain in right finger(s) (principal); D36.10 Benign neoplasm of peripheral nerves and autonomic nervous system, unspecified
CPT/HCPCS: 99202; 73130

== ENCOUNTER 2024-05-06 17:44 | Outpatient (REF) | payer MEDICARE, SELFPAY | END 2024-05-06 17:45 | disposition home or self-care (01) | LOC: NCHCN 17:44 | PROVIDERS: PCP Nurse Practitioner Family; Visit Provider Nurse Practitioner Family | DX: R39.9 Unspecified symptoms and signs involving the genitourinary system (principal); R82.89 Other abnormal findings on cytological and histological examination of urine | CPT/HCPCS: 87086 ==

== ENCOUNTER 2024-10-24 16:24 | Outpatient (REF) | payer MEDICARE, SELFPAY ==
[2024-10-24 15:15] LABS: HGB 14.5 g/dL (11.2-15.7); MCHC 32.2 % (32.0-36.0); MCV 96 fL (80-95); MPV 11.6 fL (8.0-11.0); Platelet Count 195 10^3/uL (130-400); RBC 4.67 10^6/uL (3.93-5.22); WBC 6.05 10^3/uL (4.4-10.8)
[2024-10-24 15:34] LABS: ALT 27 U/L (14-59); AST 18 U/L (15-37); Alkaline Phosphatase 88 U/L (46-116); Anion Gap 2.4 mmol/L (3-11); BUN 18 mg/dL (7-18); Bilirubin, Total 0.3 mg/dL (0.2-1.0); CO2 32.6 mmol/L (21.0-32.0); CREATININE 0.9 mg/dL (0.55-1.02); Calculated LDL 41 mg/dL (<100); Chloride 108 mmol/L (98-107); Cholesterol 106 mg/dL (<200); Estimated GFR 68.35 (mL/min/1.73m2); Glucose 94 mg/dL (74-106); HDL Cholesterol 55 mg/dL (>or=50); Potassium 3.9 mmol/L (3.5-5.1); Sodium 143 mmol/L (136-145); TSH 3.46 uIU/mL (0.36-3.74); Total Protein 7.2 g/dL (6.4-8.2); Triglyceride 54 mg/dL (<150)
== END 2024-10-24 16:25 | disposition home or self-care (01) ==
LOC: NCHCN 16:24
PROVIDERS: PCP Nurse Practitioner Family; Visit Provider Nurse Practitioner Family
DX: I65.23 Occlusion and stenosis of bilateral carotid arteries (principal)
CPT/HCPCS: 80053; 80061; 85027; 84443